=== PATIENT | female | born 1970 | race Caucasian/White ===

== ENCOUNTER 2023-11-10 12:26 | Inpatient (IN) | payer MEDICAID ==
[~2023-11-10] VITALS: Ht 152.4 cm; Wt 79.1 kg
[2023-11-10] MEDS: DiphenhydrAMINE HCL 50 MG/ML VIAL IM ONE (14:00)
[2023-11-10] MEDS: LORazepam 2 MG/ML VIAL IM ONE (14:00)
[2023-11-10] MEDS: HALOPERIDOL LACTATE 5 MG/ML VIAL IM ONE (14:01)
[2023-11-10 14:38] LABS: BASOPHILS % (AUTO) 0.3 % (0.0-2.0); EOSINOPHILS % (AUTO) 0.4 % (1.0-6.0); HEMATOCRIT 34.7 % (36-46); HEMOGLOBIN 11.5 g/dL (12.0-16.0); LYMPHOCYTES # (AUTO) 0.9 K/uL (1.0-4.8); LYMPHOCYTES % (AUTO) 19.1 % (22.0-44.0); MEAN CORPUSCULAR HEMOGLOBIN 33.6 pg (26.0-34.0); MEAN CORPUSCULAR VOLUME 102 fL (80-100); MONOCYTES # (AUTO) 0.2 K/uL (0.1-1.0); MONOCYTES % (AUTO) 4.2 % (2.0-9.0); NEUTROPHILS # (AUTO) 3.4 K/uL (1.8-7.7); PLATELET COUNT (AUTO) 199 K/uL (150-450); RED BLOOD CELL COUNT(AUTO) 3.41 MIL/uL (4.00-5.20); RED CELL DISTRIBUTION WIDTH 14.5 % (11.5-14.5); WHITE BLOOD COUNT (AUTO) 4.5 K/uL (4.5-11.0)
[2023-11-10 14:49] LABS: ANION GAP 14 mmol/L (8-16); CARBON DIOXIDE 23 mmol/L (22-29); CHLORIDE 107 mmol/L (98-107); CREATININE 0.62 mg/dL (0.60-1.30); GLOMERULAR FILTR. RATE CALC > 60 mL/min (>60); GLUCOSE,RANDOM 98 mg/dL (70-110); POTASSIUM 3.2 mmol/L (3.5-5.1); SODIUM SERUM 144 mmol/L (136-145); UREA NITROGEN, BLOOD 18 mg/dL (7-18)
[2023-11-10 14:55] LABS: ALANINE AMINOTRANSFERASE 15 U/L (12-78); ALBUMIN 3.3 g/dL (3.4-5.0); ALKALINE PHOSPHATASE 86 U/L (46-116); ASPARTATE AMINOTRANSFERASE 22 U/L (15-37); BILIRUBIN,TOTAL 0.3 mg/dL (0.1-1.0); TOTAL PROTEIN, SERUM 7.2 g/dL (6.4-8.2)
[2023-11-10 14:58] LABS: ALCOHOL, BLOOD (SERUM) 352 mg/dL (0-10)
[2023-11-10 15:24] LABS: COVID AG,FIA SOURCE NASAL SWAB
[2023-11-10] MEDS ORDERED: OLANZapine 5 MG RAPDIS TABLET PO PRN (15:30)
[2023-11-10 15:52] LABS: SARS-COV2 (COVID) ANTIGEN,FIA Negative (Negative)
[2023-11-10] MEDS: POTASSIUM CHLORIDE 20 MEQ ER TABLET PO ONE (21:13)
[2023-11-10] MEDS: ZOLPIDEM TARTRATE 10 MG TABLET PO PRN (23:41)
[2023-11-11] VITALS (8 sets, daily range): BP systolic 136–154; BP diastolic 76–95; PULSE 75–101; RESP 16–18; TEMP 97.3–98.3; O2SAT 97–100
[2023-11-11] MEDS ORDERED: PNEUMOCOCCAL VACCINE POLYVALENT 0.5 ML SYRINGE [PPSV23] IM. ONE (03:15)
[2023-11-11] MEDS: LORazepam 2 MG TABLET PO PRN (08:39)
[2023-11-11] MEDS: FOLIC ACID 1 MG TABLET PO SCH (10:58)
[2023-11-11] MEDS: LOSARTAN POTASSIUM 50 MG TABLET PO SCH (10:58)
[2023-11-11] MEDS ORDERED: GuaiFENesin/D-METHORPHAN [SUGAR-FREE] 200-20MG/10 ML SYRUP UDCUP PO PRN (14:45)
[2023-11-11] MEDS ORDERED: TUBERCULIN, PURIFIED PROTEIN DERIVATIVE 5 TU/0.1 ML SYRINGE ID ONE (14:45)
[2023-11-11] MEDS ORDERED: ACETAMINOPHEN 325 MG TABLET PO PRN (14:45)
[2023-11-11] MEDS ORDERED: LOPERAMIDE HCL 2 MG CAPSULE PO PRN ×2 (14:45)
[2023-11-11] MEDS ORDERED: MAG HYDROX/ALUMINUM HYD/SIMETH ES 30 ML SUSPENSION UDCUP PO PRN (14:45)
[2023-11-11] MEDS ORDERED: HydrOXYzine PAMOATE 50 MG CAPSULE PO PRN (14:45)
[2023-11-11] MEDS ORDERED: MAGNESIUM HYDROXIDE SUSPENSION 30 ML UDCUP PO PRN (14:45)
[2023-11-11] MEDS ORDERED: LORazepam 2 MG TABLET PO PRN (14:45)
[2023-11-11] MEDS ORDERED: PROMETHAZINE HCL 25 MG TABLET PO PRN (14:45)
[2023-11-11] MEDS: THIAMINE 100 MG TABLET PO SCH (17:01)
[2023-11-11] MEDS: GABAPENTIN 300 MG CAPSULE PO SCH (17:01)
[2023-11-11] MEDS: CYANOCOBALAMIN 1,000 MCG/ML VIAL IM ONE (17:01)
[2023-11-11] MEDS: MELATONIN 5 MG TABLET PO SCH (20:36)
[2023-11-12 02:00] VITALS: BP 134/81; PULSE 85; RESP 16; TEMP 97.5; O2SAT 95
[2023-11-12] MEDS ORDERED: LORazepam 2 MG TABLET PO PRN (07:00)
[2023-11-12 08:25] VITALS: BP 136/96; PULSE 103; RESP 16; TEMP 98; O2SAT 97
[2023-11-12 08:30] VITALS: BP 136/96; PULSE 103; RESP 16; TEMP 98; O2SAT 98
[2023-11-12 08:54] LABS: HEMOGLOBIN A1C 5.4 % (3.8-5.6)
[2023-11-12 09:02] LABS: CHOL/HDL RATIO 1.7 (3.9-5.7); FREE T4 (FREE THYROXINE) 1.05 ng/dL (0.76-1.46); POTASSIUM 3.2 mmol/L (3.5-5.1); THYROID STIMULATING HORMONE 1.72 uIU/mL (0.36-3.74)
[2023-11-12] MEDS: MULTIVITAMINS WITH MINERALS, THERAPEUTIC TABLET PO SCH (09:16)
[2023-11-12] MEDS: NALTREXONE HCL 50 MG TABLET PO SCH (09:16)
[2023-11-12] MEDS: LORazepam 2 MG TABLET PO SCH (09:16)
[2023-11-12] MEDS: FOLIC ACID 1 MG TABLET PO SCH (09:16)
[2023-11-12] MEDS: OMEGA-3/DHA/EPA/FISH OIL 1,000 MG CAPSULE PO SCH (09:17)
[2023-11-12] MEDS: DULoxetine HCL 20 MG CAPSULE PO SCH (09:17)
[2023-11-12 20:39] VITALS: BP 128/84; PULSE 100; RESP 18; TEMP 97.6; O2SAT 97
[2023-11-12 22:42] VITALS: BP 128/84; PULSE 100; RESP 18; TEMP 97.6; O2SAT 98
[2023-11-13 08:50] VITALS: BP 142/96; PULSE 79; RESP 18; TEMP 97; O2SAT 98
[2023-11-13 08:57] VITALS: BP 142/96; PULSE 89; RESP 16; TEMP 98; O2SAT 97
[2023-11-13] MEDS: DULoxetine HCL 30 MG CAPSULE PO SCH (09:01)
[2023-11-13] MEDS: POTASSIUM CHLORIDE 20 MEQ ER TABLET PO ONE ×2 (09:05→13:49)
[2023-11-13] MEDS ORDERED: OMEG-135 PO (12:11)
[2023-11-13] MEDS ORDERED: GABA-1181 PO (12:11)
[2023-11-13] MEDS ORDERED: MELA5TAB40 PO (12:11)
[2023-11-13] MEDS ORDERED: DULO-114 PO (12:11)
[2023-11-13] MEDS ORDERED: NALT50TA33 PO (12:11)
[2023-11-13] MEDS ORDERED: POTASSIUM CHLORIDE 20 MEQ ER TABLET PO ONE (17:00)
[2023-11-14] MEDS ORDERED: LORazepam 1 MG TABLET PO PRN (07:00)
[2023-11-14] MEDS ORDERED: LORazepam 1 MG TABLET PO SCH (09:00)
[2023-11-14] MEDS ORDERED: LOPERAMIDE HCL 2 MG CAPSULE PO PRN (14:45)
[2023-11-15] MEDS ORDERED: LORazepam 1 MG TABLET PO PRN (07:00)
== END 2023-11-13 14:30 | disposition left against medical advice (07) | DRG 751 ==
LOC: EMS 12:27 → B3A 20:35
PROVIDERS: ADMIT Psychiatry & Neurology Psychiatry; ATTEND Psychiatry & Neurology Psychiatry
PROC: GZHZZZZ Group Psychotherapy (ICD-10-PCS; principal; 2023-11-11)
PROC: GZ51ZZZ Individual Psychotherapy, Behavioral (ICD-10-PCS; 2023-11-11)
PROC: GZ56ZZZ Individual Psychotherapy, Supportive (ICD-10-PCS; 2023-11-12)
DX: F32.2 Major depressive disorder, single episode, severe without psychotic features (principal); R45.851 Suicidal ideations; E87.6 Hypokalemia; F17.210 Nicotine dependence, cigarettes, uncomplicated; F41.9 Anxiety disorder, unspecified; I10 Essential (primary) hypertension; Y90.8 Blood alcohol level of 240 mg/100 ml or more; G89.29 Other chronic pain; R53.83 Other fatigue; Z20.822 Contact with and (suspected) exposure to COVID-19; Z53.21 Procedure and treatment not carried out due to patient leaving prior to being seen by health care provider; M54.9 Dorsalgia, unspecified; F10.229 Alcohol dependence with intoxication, unspecified; E66.9 Obesity, unspecified; Z68.34 Body mass index [BMI] 34.0-34.9, adult; Z90.49 Acquired absence of other specified parts of digestive tract; Z79.899 Other long term (current) drug therapy
CPT/HCPCS: 80053; 80061; 83036; 84132; 84439; 84443; 84703; 85025; 86592; 99285; G0480; J1200; J1630; J2060; J3420; Q9967